=== PATIENT | male | born 1995 | race Caucasian/White ===

== ENCOUNTER 2017-12-17 13:46 | Emergency (ER) | payer OTHER ==
[~2017-12-17] VITALS: Ht 175.3 cm; Wt 61.6 kg
[~2017-12-17 13:46] MED LIST: IBUP600T26 PO; ORPH100T PO
[2017-12-17 13:53] VITALS: BP 112/70; PULSE 73; RESP 16; TEMP 98.2; O2SAT 100
[2017-12-17] MEDS ORDERED: PERM5CRE11 TOPICAL ×2 (14:11→14:12)
--- NOTE | 2017-12-17 14:16 | PD ---
HPI Chief Complaint: Skin Problem Time Seen by Provider: 14:03 Travel History International Travel<30 days: No Contact w/Intl Traveler<30days: No Traveled to known affect area: No History of Present Illness HPI 22-year-old male that presents to the ED for evaluation of rash to the arms bilaterally. Per patient has had this for about a week. Per patient is very itchy and he gets worse at night. Denies any numbness, tilling, weakness. Per patient he was exposed to a roommate and girlfriend of his roommate thought was recently diagnosed with scabies and he is concerned that he might have the same. Per patient's status with dots and then becomes more pruritic. Worsen night. No pain. No fevers chills or sweats. No other sick contacts. Allergies to cat dander. No urinary or bowel movement issues. Has not taken anything for this. PFSH Past Medical History Medical History: Denies Significant Hx ADHD: Yes Diminished Hearing: No Gastrointestinal Disorders: Yes (PRIOR HX OF BOWEL OBSTRUCTION/DIVERTICULITIS?? ) Immunizations Current: Yes Past Surgical History Surgical History: No Previous Surgery Social History Alcohol Use: Yes (OCCASIONALLY) Tobacco Use: No (2 CIGS DAILY) Substance Use: No Allergies-Medications (Allergen,Severity, Reaction): Coded Allergies: cat dander (Unverified Allergy, Mild, 12/17/17) Reported Meds & Prescriptions Reported Meds & Active Scripts Active Elimite Topical (Permethrin) 5% Cream 1 Applic TOPICAL ONCE Norflex (Orphenadrine Citrate) 100 Mg Catie 100 Mg PO HS PRN Ibuprofen 600 Mg Tab 600 Mg PO TID Review of Systems Except as stated in HPI: all other systems reviewed are Neg Physical Exam Narrative GENERAL: SKIN: Warm and dry. Patient has insect bite like lesions on the arms bilaterally. Pruritic and not painful. Some tracks noted on some of the lesions. HEAD: Atraumatic. Normocephalic. EYES: Pupils equal and round. No scleral icterus. No injection or drainage. ENT: No nasal bleeding or discharge. Mucous membranes pink and moist. Tongue is midline. No uvula deviation. NECK: Trachea midline. No JVD. CARDIOVASCULAR: Regular rate and rhythm. No murmurs, S3, S4. RESPIRATORY: No accessory muscle use. Clear to auscultation. Breath sounds equal bilaterally. GASTROINTESTINAL: Abdomen soft, non-tender, nondistended. Hepatic and splenic margins not palpable. MUSCULOSKELETAL: Extremities without clubbing, cyanosis, or edema. No obvious deformities. Full range of motion of the upper and lower extremities bilaterally. NEUROLOGICAL: Awake and alert. No obvious cranial nerve deficits. Motor grossly within normal limits. Five out of 5 muscle strength in the arms and legs. Normal speech. PSYCHIATRIC: Appropriate mood and affect; insight and judgment normal. Data Data Last Documented VS Vital Signs Date Time Temp Pulse Resp B/P (MAP) Pulse Ox O2 Delivery O2 Flow Rate FiO2 12/17/17 13:53 98.2 73 16 112/70 (84) 100 Orders Orders Ed Discharge Order (12/17/17 14:11) MDM Medical Decision Making Medical Screen Exam Complete: Yes Emergency Medical Condition: Yes Medical Record Reviewed: Yes Differential Diagnosis Scabies versus insect bites versus normal exam Narrative Course 22-year-old male that presents to the ED for evaluation of scabies. Patient was properly examined and was found to have signs and symptoms very consistent with scabies. Patient will be given Elimite prescription with refills to use one week from today as well as today. Patient agrees with plan. Patient was told to get is controlling his house as well as to clean all of his sheets and clothes. Follow-up with PCP. See ED if worsening symptoms. Diagnosis Primary Impression: Scabies Patient Instructions: General Instructions Additional Instructions: Take cream as prescribed. Follow-up with PCP. See ED if worsening symptoms. Benadryl for itch as needed. Med/Other Pt SpecificInfo: Prescription(s) given Scripts Permethrin Topical (Elimite Topical) 5% Cream 1 APPLIC TOPICAL ONCE for Scabies, #1 TUBE 2 Refills Prov: Aaron Rosa MD 12/17/17 Disposition: 01 DISCHARGE HOME Condition: Stable Isaac Westfall Dec 17, 2017 14:16
== END 2017-12-17 14:46 | disposition home or self-care (01) ==
LOC: PHEFT 13:46
DX: B86 Scabies (principal)
CPT/HCPCS: 99283

== ENCOUNTER 2017-12-24 13:39 | Emergency (ER) | payer OTHER ==
[~2017-12-24] VITALS: Ht 172.7 cm; Wt 60.0 kg
[~2017-12-24 13:39] MED LIST changes: -IBUP600T26 PO; -ORPH100T PO; +PERM5CRE11 TOPICAL
[2017-12-24 13:41] VITALS: BP 120/75; PULSE 77; RESP 15; TEMP 98.1; O2SAT 99
--- NOTE | 2017-12-24 14:16 | PD ---
HPI Chief Complaint: Wound/Suture/Staple Re-Check Time Seen by Provider: 14:06 Travel History International Travel<30 days: No Contact w/Intl Traveler<30days: No Traveled to known affect area: No History of Present Illness HPI This is a 22-year-old male here requesting recheck of a scabies rash. He was treated approximately one week ago. He reports symptom improvement. He is requesting a return to work note. PFSH Past Medical History Diminished Hearing: No Gastrointestinal Disorders: Yes (PRIOR HX OF BOWEL OBSTRUCTION/DIVERTICULITIS?? ) Immunizations Current: Yes ?: Not Social History Alcohol Use: Yes (OCCASIONALLY) Tobacco Use: No (2 CIGS DAILY) Substance Use: No Allergies-Medications (Allergen,Severity, Reaction): Coded Allergies: cat dander (Unverified Allergy, Mild, 12/24/17) Reported Meds & Prescriptions Reported Meds & Active Scripts Active Elimite Topical (Permethrin) 5% Cream 1 Applic TOPICAL ONCE Review of Systems Except as stated in HPI: all other systems reviewed are Neg General / Constitutional: No: Fever Physical Exam Narrative GENERAL: Alert and well-appearing 22-year-old male SKIN: Warm and dry. No rash HEAD: Normocephalic. EYES: No injection or drainage. NECK: Supple Data Data Last Documented VS Vital Signs Date Time Temp Pulse Resp B/P (MAP) Pulse Ox O2 Delivery O2 Flow Rate FiO2 12/24/17 13:41 98.1 77 15 120/75 (90) 99 MDM Medical Decision Making Medical Screen Exam Complete: Yes Emergency Medical Condition: Yes Differential Diagnosis Scabies recheck, abscess, cellulitis Narrative Course This is a 22-year-old male here requesting a return to work note. He was diagnosed scabies over week ago. He reports symptoms have completely resolved after using the Elimite lotion. There is no evidence of an active scabies infection at this time. He'll be given a note to return to work. Diagnosis Primary Impression: Scabies Referrals: [facility] Departure Forms: Tests/Procedures, Work Release Enter return to work date: Dec 25, 2017 Disposition: 01 DISCHARGE HOME Condition: Stable Rosangela Melton Dec 24, 2017 14:16
== END 2017-12-24 14:32 | disposition home or self-care (01) ==
LOC: PHEFT 13:39
DX: B86 Scabies (principal); F17.200 Nicotine dependence, unspecified, uncomplicated; Z91.048 Other nonmedicinal substance allergy status
CPT/HCPCS: 99281